=== PATIENT | male | born 1980 | race African-American/Black ===

== ENCOUNTER 2017-09-03 15:07 | Emergency (ER) | payer MEDICAID ==
[~2017-09-03] VITALS: Ht 185.4 cm; Wt 95.3 kg
== END 2017-09-03 20:30 | disposition home or self-care (01) ==
LOC: ED 15:07
DX: Z00.8 Encounter for other general examination (principal)
CPT/HCPCS: 36415; 80053; 80176; 81001; 84443; 85025; 96372; 99283; G0480

== ENCOUNTER 2018-11-03 21:35 | Emergency (ER) | payer OTHER ==
[~2018-11-03] VITALS: Ht 185.4 cm; Wt 93.0 kg
--- OUTSIDE RECORDS SUMMARY | 2018-11-03 21:38 | XMS ---
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 Karan has no Care Guidelines for this patient. Getachew VISIT COUNT (12 MO.) [address] [facility] Cerna TOTAL 3 NOTE: Visits indicate total known visits. ED/C VISIT TRACKING (12 MO.) 11/03/2018 21:35 [facility] [place] TYPE: Emergency COMPLAINT: - MED CLEARANCE 10/12/2018 16:06 [facility] [place] TYPE: Emergency COMPLAINT: - SUICIDAL THOUGHTS DIAGNOSES: - Encounter for other general examination - Suicidal ideations - Major depressive disorder, single episode, unspecified - Nicotine dependence, unspecified, uncomplicated - Bee allergy status 10/03/2018 23:10 [facility] [place] TYPE: Emergency COMPLAINT: - OVERDOSE DIAGNOSES: - Suicidal ideations - Bee allergy status - Poisoning by skeletal muscle relaxants [neuromuscular blocking agents], intentional self-harm, initial encounter - Cocaine use, unspecified, uncomplicated - Cannabis use, unspecified, uncomplicated - Nicotine dependence, unspecified, uncomplicated INPATIENT VISIT TRACKING (12 MO.) No inpatient visits to display in this time frame [email or web address]
== END 2018-11-05 14:05 | disposition short-term general hospital (02) ==
LOC: ED 21:35
DX: R45.851 Suicidal ideations (principal); F17.200 Nicotine dependence, unspecified, uncomplicated; Z00.8 Encounter for other general examination; Z91.030 Bee allergy status
CPT/HCPCS: 36415; 80053; 80176; 81001; 84443; 85025; 99283; G0480